=== PATIENT | female | born 1990 | race Caucasian/White ===

== ENCOUNTER → 2017-04-05 | Outpatient (CLI) | payer BC ==
[~2017-04-05] MED LIST: BENADRYL25 MG PO; BENTYL10 MG PO; BIRTH CONTROL; CEPH500 PO; Cyclobenzaprine5 MG PO; IBUP600 PO; KETO10 PO; NAPR500 PO; Nix Lice Treatm59 ML TOP; ONDA4ODT MM; OXYACE5T PO; PROM25 PO; TRAM50 PO; Vibramycin100 MG PO; Zofran Odt4 MG SL; Zofran4 MG PO
[2017-04-06 10:28] LABS: Source Vaginal/Cervical
== END ==
LOC: LAB 17:02
PROVIDERS: Obstetrics & Gynecology
DX: Z11.3 Encounter for screening for infections with a predominantly sexual mode of transmission (principal)
CPT/HCPCS: 87491; 87591; 87661

== ENCOUNTER 2017-04-10 09:52 | Emergency (ER) | payer BC ==
[~2017-04-10] VITALS: Ht 160 cm; Wt 45.4 kg
[~2017-04-10 09:52] MED LIST changes: -BENTYL10 MG PO
[2017-04-10 10:38] LABS: BASOPHILS ABSOLUTE AUTO 0.02 K/mm3 (0.00-0.23); BASOPHILS PERCENT AUTO 1 % (0-2); EOSINOPHILS ABSOLUTE AUTO 0.03 K/mm3 (0.00-0.68); EOSINOPHILS PERCENT AUTO 1 % (0-6); Hematocrit 40.8 % (33.0-51.0); Hemoglobin 13.9 g/dL (11.5-16.0); IMMATURE GRAN ABSOLUTE AUTO 0.01 K/mm3 (0.00-0.10); IMMATURE GRAN PERCENT AUTO 0 % (0-1); LYMPHOCYTES ABSOLUTE AUTO 1.59 K/mm3 (0.84-5.20); LYMPHOCYTES PERCENT AUTO 36 % (21-46); MONOCYTES ABSOLUTE AUTO 0.44 K/mm3 (0.16-1.47); MONOCYTES PERCENT AUTO 10 % (4-13); Mean Corpuscular HGB Conc 34.1 g/dL (31.5-36.5); Mean Corpuscular Volume 97 fL (80-100); Mean Platelet Volume 11.5 fL (9.1-12.4); NEUTROPHILS ABSOLUTE AUTO 2.28 K/mm3 (1.96-9.15); NEUTROPHILS PERCENT AUTO 52 % (41-73); Platelet Count 226 K/mm3 (150-400); RDW Standard Deviation 42.6 fL (35.1-46.3); Red Blood Cell Count 4.21 M/mm3 (3.80-5.20); White Blood Cell Count 4.37 K/mm3 (4.00-11.30)
[2017-04-10 10:56] LABS: Alanine Aminotransfer (ALT/SGP 17 U/L (12-78); Albumin, Blood 4.3 g/dL (3.4-5.0); Albumin/Globulin Ratio 1.3 (0.8-1.8); Alk Phos 18 U/L (50-136); Anion Gap 8 mmol/L (6-16); Aspartate Aminotrans (AST/SGOT 19 U/L (12-37); Bilirubin, Total 0.7 mg/dL (0.1-1.0); Blood Urea Nitrogen 11 mg/dL (8-24); Bun/Creatinine Ratio 18.9 (12.0-20.0); CO2, Blood 24 mmol/L (21-32); Calcium, Blood 9.1 mg/dL (8.5-10.1); Chloride, Blood 108 mmol/L (98-108); Creatinine, Blood 0.58 mg/dL (0.40-1.00); Globulin, Blood 3.2 g/dL (2.2-4.0); Glomerular Filtration Rate >60 (60-); Glucose, Blood 79 mg/dL (70-99); Potassium, Blood 3.6 mmol/L (3.5-5.5); Sodium, Blood 140 mmol/L (136-145); Total Protein, Blood 7.5 g/dL (6.4-8.2)
[2017-04-10] MEDS ORDERED: BENTYL10 MG PO (12:49)
[2017-04-10] MEDS ORDERED: Zofran Odt4 MG SL (12:49)
== END 2017-04-10 13:24 | disposition home or self-care (01) ==
LOC: ER 09:52
PROVIDERS: Emergency Medicine
DX: R10.13 Epigastric pain (principal); Z88.1 Allergy status to other antibiotic agents; K58.9 Irritable bowel syndrome, unspecified
CPT/HCPCS: 36415; 74019; 80053; 81000; 81025; 83690; 85025; 96361; 96374; 96375; 99284; C9113; J2405; J3010; J7030

== ENCOUNTER 2019-05-26 18:28 | Emergency (ER) | payer BC ==
[~2019-05-26] VITALS: Ht 160 cm; Wt 45.4 kg
[~2019-05-26 18:28] MED LIST changes: +BENTYL10 MG PO
== END 2019-05-26 20:39 | disposition home or self-care (01) ==
LOC: ER 18:28
DX: S09.93XA Unspecified injury of face, initial encounter (principal); F41.9 Anxiety disorder, unspecified; K58.9 Irritable bowel syndrome, unspecified; Z88.1 Allergy status to other antibiotic agents; W22.8XXA Striking against or struck by other objects, initial encounter
CPT/HCPCS: 70486; 70490; 99283-25; A9270-GY

== ENCOUNTER → 2019-12-05 | Outpatient (CLI) | payer BC | LOC: LAB SHORT 11:29 → LAB EV 11:29 | DX: J06.9 Acute upper respiratory infection, unspecified (principal); Z20.828 Contact with and (suspected) exposure to other viral communicable diseases | CPT/HCPCS: U0003 ==

== ENCOUNTER 2020-01-21 00:40 | Emergency (ER) | payer OTHER, BC ==
[~2020-01-21] VITALS: Ht 160 cm; Wt 51.7 kg
== END 2020-01-21 02:55 | disposition home or self-care (01) ==
LOC: ER 00:40
DX: S16.1XXA Strain of muscle, fascia and tendon at neck level, initial encounter (principal); Z88.1 Allergy status to other antibiotic agents; V43.52XA Car driver injured in collision with other type car in traffic accident, initial encounter; Y92.410 Unspecified street and highway as the place of occurrence of the external cause
CPT/HCPCS: 72040; 99284-25; A9270

== ENCOUNTER 2021-01-27 13:44 | Emergency (ER) | payer SELFPAY ==
[~2021-01-27] VITALS: Ht 160 cm; Wt 49.9 kg
== END 2021-01-27 15:34 | disposition home or self-care (01) ==
LOC: ER 13:44
DX: U07.1 COVID-19 (principal); Z88.1 Allergy status to other antibiotic agents; G43.909 Migraine, unspecified, not intractable, without status migrainosus
CPT/HCPCS: 99285

== ENCOUNTER 2024-05-01 19:00 | Emergency (ER) | payer OTHER ==
[~2024-05-01] VITALS: Ht 160 cm; Wt 59.0 kg
[2024-05-01] MEDS ORDERED: DiphenhydrAMINE HCl 50 MG/ML 1ML Vial IV ONE (20:00)
[2024-05-01] MEDS ORDERED: Ketorolac Tromethamine 15mg Vial IV ONE (20:00)
[2024-05-01] MEDS ORDERED: Prochlorperazine Edisylate 10 mg Vial IV ONE (20:00)
[2024-05-01] MEDS ORDERED: NS 1,000 ML IV SCH (20:00)
[2024-05-01 20:15] VITALS: BP 116/70
== END 2024-05-01 21:08 | disposition home or self-care (01) ==
LOC: ER 19:00
DX: G43.909 Migraine, unspecified, not intractable, without status migrainosus (principal); M41.9 Scoliosis, unspecified; Z88.1 Allergy status to other antibiotic agents
CPT/HCPCS: 96361; 96374; 96375; 99283-25; J0780; J1200; J1885; J7030

== ENCOUNTER → 2024-05-09 | Outpatient (CLI) | payer OTHER ==
[2024-05-09 12:59] LABS: Bacterial Vaginosis PCR Negative (NEGATIVE); Candida Group, PCR NOT DETECTED (NOT DETECT)
[2024-05-09 14:32] LABS: Candida glabrata-krusei, PCR DETECTED (NOT DETECT)
== END ==
LOC: LAB 09:30 → LAB SHORT 09:30
PROVIDERS: Obstetrics & Gynecology
DX: N76.0 Acute vaginitis (principal)
CPT/HCPCS: 81515

== ENCOUNTER → 2024-06-18 | Outpatient (CLI) | payer OTHER ==
[2024-06-18 20:10] LABS: Candida Group, PCR NOT DETECTED (NOT DETECT)
[2024-06-18 20:34] LABS: Bacterial Vaginosis PCR Positive (NEGATIVE); Candida glabrata-krusei, PCR DETECTED (NOT DETECT)
[2024-06-22 11:28] LABS: HPV HIGH RISK BY TMA Not Detected; HPV SOURCE Cerv/Endocerv
== END | disposition home or self-care (01) ==
LOC: LAB 16:47 → LAB SHORT 16:47
PROVIDERS: Obstetrics & Gynecology
DX: Z01.419 Encounter for gynecological examination (general) (routine) without abnormal findings (principal); B37.31 Acute candidiasis of vulva and vagina
CPT/HCPCS: 81515; 87624; G0123